=== PATIENT | female | born 1980 | race Caucasian/White ===

== ENCOUNTER 2020-03-22 11:42 | Outpatient (REF) | payer OTHER, SELFPAY | END 2020-03-22 11:43 | disposition home or self-care (01) | LOC: HO.LAB 11:42 | PROVIDERS: Visit Provider Internal Medicine | DX: Z20.828 Contact with and (suspected) exposure to other viral communicable diseases (principal) | CPT/HCPCS: 87635 ==

== ENCOUNTER 2020-05-09 17:02 | Outpatient (REF) | payer OTHER, SELFPAY | END 2020-05-09 17:03 | disposition home or self-care (01) | LOC: HO.LAB 17:02 | PROVIDERS: Visit Provider Internal Medicine | DX: Z20.828 Contact with and (suspected) exposure to other viral communicable diseases (principal) | CPT/HCPCS: C9803; U0003 ==

== ENCOUNTER 2020-05-16 12:13 | Outpatient (REF) | payer OTHER, SELFPAY | END 2020-05-16 12:14 | disposition home or self-care (01) | LOC: HO.LAB 12:13 | PROVIDERS: Visit Provider Internal Medicine | DX: Z20.828 Contact with and (suspected) exposure to other viral communicable diseases (principal) | CPT/HCPCS: C9803; U0003 ==

== ENCOUNTER 2020-06-07 17:30 | Outpatient (REF) | payer OTHER, SELFPAY | END 2020-06-07 17:31 | disposition home or self-care (01) | LOC: HO.LAB 17:30 | PROVIDERS: Visit Provider Internal Medicine | DX: Z20.828 Contact with and (suspected) exposure to other viral communicable diseases (principal) | CPT/HCPCS: 36415; C9803; U0003 ==

== ENCOUNTER 2020-08-07 11:24 | Outpatient (REF) | payer OTHER, SELFPAY | END 2020-08-07 11:25 | disposition home or self-care (01) | LOC: HO.LAB 11:24 | PROVIDERS: Visit Provider Internal Medicine | DX: Z20.822 Contact with and (suspected) exposure to COVID-19 (principal) | CPT/HCPCS: 36415; C9803; U0003; U0005 ==